=== PATIENT | male | born 2000 | race Hispanic/Latino ===

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

== ENCOUNTER 2022-12-03 14:18 | Outpatient (CLI) | payer BC | END 2022-12-03 14:19 | disposition home or self-care (01) | LOC: SCSRAD 14:18 | PROVIDERS: ATTEND Nurse Practitioner Family | DX: M25.552 Pain in left hip (principal) ==